=== PATIENT | female | born 1990 | race Caucasian/White ===

== ENCOUNTER 2017-06-22 20:44 | Emergency (ER) | payer OTHER ==
[~2017-06-22] VITALS: Ht 160 cm; Wt 61.7 kg
[2017-06-22 21:02] VITALS: BP 126/74
== END 2017-06-22 22:00 | disposition home or self-care (01) ==
LOC: ED 20:44
DX: G44.209 Tension-type headache, unspecified, not intractable (principal); Z90.89 Acquired absence of other organs; Z90.49 Acquired absence of other specified parts of digestive tract

== ENCOUNTER 2018-12-26 21:34 | Emergency (ER) | payer OTHER ==
[~2018-12-26] VITALS: Ht 160 cm; Wt 77.6 kg
[2018-12-26 21:37] VITALS: Ht 160 cm; Wt 77.6 kg
[2018-12-26 22:17] VITALS: BP 141/81
== END 2018-12-26 22:17 | disposition home or self-care (01) ==
LOC: ED 21:34
DX: J01.90 Acute sinusitis, unspecified (principal); Z90.89 Acquired absence of other organs

== ENCOUNTER 2019-08-04 04:00 | Emergency (ER) | payer OTHER ==
[~2019-08-04] VITALS: Ht 157.5 cm; Wt 79.2 kg
[2019-08-04 04:09] VITALS: Ht 157.5 cm; Wt 79.2 kg
[2019-08-04 05:21] VITALS: BP 120/67
== END 2019-08-04 05:21 | disposition home or self-care (01) ==
LOC: ED 04:00
DX: B34.9 Viral infection, unspecified (principal); Z90.89 Acquired absence of other organs

== ENCOUNTER 2019-10-14 21:00 | Emergency (ER) | payer OTHER ==
[~2019-10-14] VITALS: Ht 157.5 cm; Wt 62.4 kg
[2019-10-14 21:04] VITALS: Ht 157.5 cm; Wt 62.4 kg
[2019-10-14 21:56] VITALS: BP 127/90
== END 2019-10-14 21:56 | disposition home or self-care (01) ==
LOC: ED 21:00
DX: S90.01XA Contusion of right ankle, initial encounter (principal); S80.01XA Contusion of right knee, initial encounter; Z90.89 Acquired absence of other organs; V49.49XA Driver injured in collision with other motor vehicles in traffic accident, initial encounter; Y93.I9 Activity, other involving external motion; Y92.411 Interstate highway as the place of occurrence of the external cause; Y99.8 Other external cause status

== ENCOUNTER 2020-02-24 17:15 | Emergency (ER) | payer OTHER, SELFPAY ==
[~2020-02-24] VITALS: Ht 160 cm; Wt 83.0 kg
[2020-02-24 18:08] VITALS: Ht 160 cm; Wt 83.0 kg
[2020-02-24 19:43] VITALS: BP 128/76
== END 2020-02-24 19:43 | disposition home or self-care (01) ==
LOC: ED 17:15
DX: B34.9 Viral infection, unspecified (principal); R19.7 Diarrhea, unspecified; K92.1 Melena; R11.2 Nausea with vomiting, unspecified; J02.9 Acute pharyngitis, unspecified; Z20.828 Contact with and (suspected) exposure to other viral communicable diseases; Z90.89 Acquired absence of other organs
CPT/HCPCS: U0003-CS

== ENCOUNTER 2020-05-31 16:06 | Emergency (ER) | payer OTHER ==
[~2020-05-31] VITALS: Ht 160 cm; Wt 86.2 kg
[2020-05-31 16:28] VITALS: BP 118/86; Ht 160 cm; Wt 86.2 kg
== END 2020-05-31 18:55 | disposition home or self-care (01) ==
LOC: ED 16:06
DX: S80.212A Abrasion, left knee, initial encounter (principal); Z90.89 Acquired absence of other organs; W01.0XXA Fall on same level from slipping, tripping and stumbling without subsequent striking against object, initial encounter; Y93.89 Activity, other specified; Y92.89 Other specified places as the place of occurrence of the external cause; Y99.8 Other external cause status
CPT/HCPCS: 90715; Q0092

== ENCOUNTER → 2020-09-27 | Outpatient (CLI) | payer OTHER ==
[2020-09-27 17:22] LABS: T4(THYROXINE) 8.5 ug/dL (4.7-13.3)
== END | disposition home or self-care (01) ==
LOC: LB 16:15
PROVIDERS: ATTEND Obstetrics & Gynecology
DX: E03.9 Hypothyroidism, unspecified (principal)